=== PATIENT | male | born 1955 | race Caucasian/White ===

== ENCOUNTER 2017-04-01 11:10 | Day surgery (SDC) | payer OTHER, MEDICARE ==
[2017-04-01] MEDS ORDERED: PROPOFOL 60 ML (13:08)
[2017-04-01] MEDS ORDERED: LIDOCAINE 2% (SDV) 5 ML INJ (13:08)
== END 2017-04-01 16:26 | disposition home or self-care (01) ==
LOC: GIL 11:10
DX: K29.50 Unspecified chronic gastritis without bleeding (principal); K21.0 Gastro-esophageal reflux disease with esophagitis; K29.70 Gastritis, unspecified, without bleeding; K63.5 Polyp of colon; K64.8 Other hemorrhoids
CPT/HCPCS: 43239; 82962; 88305; 88312